=== PATIENT | female | born 1975 | race African-American/Black ===

== ENCOUNTER 2016-12-31 17:38 | Emergency (ER) | payer SELFPAY ==
[~2016-12-31 17:38] MED LIST: ALBUTEROL17 GM INH; DELSYM30 MG/5 M PO; FLEXERIL10 MG PO; IBUPROFEN200 MG; LEVAQUIN500 MG; LEVAQUIN500 MG PO; MOTRIN200 MG/TA1 PO; NO MEDICATIONS; NORCO 5/325 TAB1 TAB PO; PHENERGAN W/CO120 ML; PHENERGAN W/CO120 ML PO; PREDNISONE20 MG PO; PROZAC20 MG; TESSALON PERLE100 MG PO; ULTRAM50 MG PO; VIBRAMYCIN100 MG PO; VICODIN 5/500 T1 TAB PO; ZITHROMAX250MG Z-PAK PO; [UNRECOGNIZED DRUG - OTHER]
[2016-12-31] MEDS ORDERED: NORCO 5-325 TA1 EACH PO (18:27)
== END 2016-12-31 18:44 ==
LOC: EDMED 17:38
DX: R51 Headache (principal); F17.200 Nicotine dependence, unspecified, uncomplicated